=== PATIENT | female | born 1985 | race Caucasian/White ===

== ENCOUNTER → 2019-02-21 | Outpatient (CLI) | payer OTHER ==
[~2019-02-21] MED LIST: E-Z-GAS II EFFERVESCENT PACKET (SODIUM BICARB./CITRIC ACID/SIMETHICONE) As Ordered ONE; E-Z-HD 98% w/w 340GM SUSP BTL As Ordered ONE; E-Z-PAQUE 96% w/w SUSP 176GM BTL As Ordered ONE
--- NOTE | 2019-02-22 20:10 | REP ---
Examination Requested: Esophagram Barium Swallow Reason For Exam/Comment: Dysphasia, gastroesophageal spasm Esophagram: The procedure was performed LISA Ocasio, under the direct supervision of Dr. Cordero. The images were reviewed with Dr. Cordero. A single PA chest x-ray is submitted as a copy lathe tender film. The superior mediastinal structures are midline. The heart size is within normal limits. The lungs are clear. Liquid barium and gas producing granules were given in the erect position as well as liquid barium in the prone oblique position, in order to perform a double contrast esophagram examination. Oral and pharyngeal stages of the examination were unremarkable. Esophageal transport is efficient and there is no esophagitis, stricture, or mucosal ring noted. There is no hiatal hernia noted. Gastroesophageal reflux was visualized to the level of the thoracic inlet. Impression: 1. Gastroesophageal reflux to the level of the thoracic inlet. 0.3 minutes of fluoroscopy time was utilized for this procedure. Some fluoroscopic images are performed with last image hold technology. These images require no additional radiation. Reviewed by LISA Reynoso 02/21/2019 03:05 P Electronically Signed by Placido Cordero MD 02/22/2019 08:02 P
== END ==
LOC: M RAD 07:06
PROVIDERS: ATTEND Physician Assistant
DX: K21.9 Gastro-esophageal reflux disease without esophagitis (principal)

== ENCOUNTER 2019-08-14 11:29 | Emergency (ER) | payer OTHER ==
[~2019-08-14] VITALS: Ht 160 cm; Wt 66.5 kg
[2019-08-14 12:30] LABS: BASO % 0.5 % (0.0-1.0); EOS # 0.1 10^3/uL (0.0-0.5); EOS % 1.1 % (0.0-3.0); HEMATOCRIT 40.4 % (36.0-47.0); HEMOGLOBIN 13.2 g/dl (12.0-15.5); LYMPH % 30.1 % (24.0-44.0); MEAN CORPUSCULAR HEMOGLOBIN 27.7 pg (27.0-33.0); MEAN CORPUSCULAR HGB CONC 32.7 g/dl (32.0-36.5); MEAN CORPUSCULAR VOLUME 84.7 fl (80.0-96.0); MONO # 0.4 10^3/uL (0.0-0.8); MONO % 6.1 % (0.0-5.0); NEUTROPHILS # 4.1 10^3/uL (1.5-8.5); NEUTROPHILS % 61.9 % (36.0-66.0); PLATELET COUNT, AUTOMATED 307 10^3/uL (150-450); RED BLOOD COUNT 4.77 10^6/uL (4.00-5.40); WHITE BLOOD COUNT 6.6 10^3/uL (4.0-10.0)
[2019-08-14 13:09] LABS: HCG, SERUM QUALITATIVE NEGATIVE (NEGATIVE)
[2019-08-14 13:10] LABS: ALBUMIN 4.1 GM/DL (3.2-5.2); ALT/SGPT 43 U/L (12-78); BILIRUBIN,DIRECT 0.2 MG/DL (0.0-0.2); BILIRUBIN,TOTAL 0.7 MG/DL (0.2-1.0); LIPASE 109 U/L (73-393); TOTAL PROTEIN 7.3 GM/DL (6.4-8.2)
[2019-08-14] MEDS ORDERED: ISOVUE-370 76% 100ML VIAL (Q9967) As Ordered ONE (13:27)
--- NOTE | 2019-08-14 14:42 | REP ---
CT ABDOMEN AND PELVIS WITH IV CONTRAST ONLY: 08/14/2019. Clinical history. Right lower quadrant pain worse with movement. Increasing over the past 4 days. Technique: Bolus of 75 mL Isovue 370, scanning through the abdomen and pelvis with coronal and sagittal reconstructions provided. Findings: No prior study. CT abdomen: Lung bases are clear. Heart is not enlarged. There is no pericardial thickening or effusion. No hiatal hernia. I see no hepatosplenomegaly, focal hepatic mass or splenic lesion. There is no intrahepatic biliary dilatation. Gallbladder shows no calcified stone. Small amount of sludge is difficult to exclude. No ascites in the upper abdomen. Pancreas shows no mass, ductal dilatation or inflammatory change and no adjacent fluid or adenopathy. Kidneys were without hydronephrosis or mass. I see no periaortic, retroperitoneal or mesenteric adenopathy in the abdomen proper. Stomach collapsed. Small bowel loops in the abdomen proper without dilatation or inflammatory change. The colon shows stool and gas scattered around about its abdominal course. Lung window review of all CT slices in the abdomen and pelvis shows no perforation or free air. Bone windows show lumbar and lower thoracic vertebral levels, their posterior elements as well as the visualized ribs to be all intact. 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 Kidneys show function without obstruction. There is no hydronephrosis, hydroureter, ureteral stone or bladder stone. Bladder only partially filled but without mass. Uterus anteverted, not enlarged. The ovaries are fairly symmetric in size. There is a collapsing cyst or follicle in the right ovary up to 17 mm. In addition, there are tubular low density areas in the right adnexa. This may reflect some hydrosalpinx or fluid in small bowel loops. The appendix is seen measuring up to 5.8 mm and is without appendicolith or inflammatory change. No pericecal mass or fluid collection. No abscess. In the pelvis the distal left colon, sigmoid and rectum were unremarkable. There is no ventral or inguinal hernia nor pathologic sized inguinal adenopathy. Impression: 1. There is evidence for a collapsing cyst or follicle in the right ovary up to 1.7 cm currently, but without associated free fluid or mass. 2. Tubular fluid filled structures adjacent to that ovary may reflect hydrosalpinx or small bowel loops. 3. Normal appendix seen and less than 6 mm size without no appendicolith, periappendiceal inflammatory change, perforation or abscess. 4. No colitis or diverticulitis. Small bowel loops visible were grossly unremarkable. Solid organs upper abdomen unremarkable. Electronically Signed by Salty Kirkpatrick MD 08/14/2019 08:32 P
[2019-08-14] MEDS ORDERED: KETO10TAB PO (17:28)
[2019-08-14 17:42] VITALS: BP 111/70
[2019-08-14] MEDS ORDERED: ACETAMINOPHEN 325 MG TAB PO ONE (17:45)
[2019-08-14] MEDS ORDERED: KETOROLAC TROMETHAMINE 10 MG TAB PO ONE (17:45)
--- NOTE | 2019-08-15 07:48 | REP ---
PELVIC AND ENDOVAGINAL PROBE ULTRASOUND: 08/14/2019. COMPARISON: CT abdomen pelvis today. CLINICAL HISTORY: Right lower quadrant pain. Fluid-filled bowel loops versus hydrosalpinx at the right adnexa. Collapsing cyst or follicle right ovary. FINDINGS: Both transabdominal and endovaginal probes were utilized. Bladder was 8.8 x 8.7 x 4.4 cm in greatest diameter. Uterus is anteverted and transabdominal and retroverted during endovaginal probe ultrasound and measured 8.5 x 3.9 x 4.4 cm. It has central endometrial echogenic stripe of 6.7 mm. There is no fluid in the endometrial cavity. Uterus has smooth contour with no mass. The right adnexa shows the ovary 3.3 x 3.2 x 2.4 cm with calculated volume of 13 mL. Doppler tracing shows resistive index of 0.49. There is an involuting follicle or cyst at 1.3 x 1 x 1 cm, which was seen by CT as well. Trace amount of free fluid is noted adjacent to it. The left ovary is 2.9 x 1.9 x 3 cm calculated volume 8.6 mL . It has normal Doppler tracing with resistive index 0.61. Neither ovary with torsion. IMPRESSION: 1. A collapsing cyst or follicle in the right ovary with a small amount of blood flow at its periphery and with trace free fluid in the right adnexa. 2. I do not see evidence of hydrosalpinx, the findings on CT are therefore felt to represent small bowel loops with fluid. 3. Both ovaries with normal blood flow, no torsion. 4. Uterus and endometrial stripe normal. Electronically Signed by Salty Kirkpatrick MD 08/15/2019 09:31 A
== END 2019-08-14 17:45 | disposition home or self-care (01) ==
LOC: M ED 11:29
DX: N83.01 Follicular cyst of right ovary (principal); Z88.8 Allergy status to other drugs, medicaments and biological substances
CPT/HCPCS: 74177; 76830; 76856; 80047; 80076; 81001; 83690; 84703; 85025; 93976; 99284; Q9967

== ENCOUNTER → 2020-02-26 | Outpatient (REF) | payer OTHER ==
[~2020-02-26] MED LIST changes: -E-Z-GAS II EFFERVESCENT PACKET (SODIUM BICARB./CITRIC ACID/SIMETHICONE) As Ordered ONE; -E-Z-HD 98% w/w 340GM SUSP BTL As Ordered ONE; -E-Z-PAQUE 96% w/w SUSP 176GM BTL As Ordered ONE; +KETO10TAB PO
== END ==
LOC: M LAB REF 11:55
PROVIDERS: ATTEND Physician Assistant Medical
DX: J02.9 Acute pharyngitis, unspecified (principal)

== ENCOUNTER → 2024-07-31 | Outpatient (REF) | payer OTHER | LOC: M LAB REF 17:45 | PROVIDERS: ATTEND Physician Assistant | DX: B34.9 Viral infection, unspecified (principal) ==

== ENCOUNTER → 2024-11-23 | Outpatient (REF) | payer OTHER ==
[2024-11-23 17:21] LABS: APPEARANCE, URINE CLEAR (CLEAR); BACTERIA, URINE AUTO NEGATIVE (NEGATIVE); BILIRUBIN, URINE AUTO NEGATIVE (NEGATIVE); BLOOD, URINE BLOOD NEGATIVE (NEGATIVE); COLOR, URINE YELLOW (YELLOW); GLUCOSE, URINE (UA) AUTO NEGATIVE (NEGATIVE); KETONE, URINE AUTO NEGATIVE (NEGATIVE); LEUKOCYTE ESTERASE, URINE AUTO NEGATIVE (NEGATIVE); MUCUS, URINE SMALL (NEGATIVE); NITRITE, URINE AUTO NEGATIVE (NEGATIVE); PROTEIN, URINE AUTO NEGATIVE (NEGATIVE); RBC, URINE AUTO 0 /HPF (0-3); SPECIFIC GRAVITY URINE AUTO 1.023 (1.002-1.035); SQUAMOUS EPITHELIAL CELL UR AU 1 /HPF (0-6); UROBILINOGEN, URINE AUTO 0.2 mg/dL (0.0-2.0); WBC, URINE AUTO 0 /HPF (0-3)
[2024-11-23 18:55] LABS: Trichomonas vaginalis (AMP) NOT DETECTED (NEGATIVE)
[2024-11-23 19:19] LABS: GC DNA AMPLIFICATION NEGATIVE (NEGATIVE)
== END ==
LOC: M LAB REF 17:02
PROVIDERS: ATTEND Physician Assistant
DX: Z20.2 Contact with and (suspected) exposure to infections with a predominantly sexual mode of transmission (principal)

== ENCOUNTER → 2025-04-12 | Outpatient (REF) | payer OTHER | LOC: M LAB REF 17:11 | PROVIDERS: ATTEND Physician Assistant | DX: N89.8 Other specified noninflammatory disorders of vagina (principal) ==

== ENCOUNTER → 2025-05-14 | Outpatient (REF) | payer OTHER | LOC: M LAB REF 18:57 | DX: J02.9 Acute pharyngitis, unspecified (principal) ==

== ENCOUNTER → 2025-06-02 | Outpatient (REF) | payer OTHER ==
[~2025-06-02] MED LIST changes: +MONT-5 PO; +RIZA10TA64 PO; +TOPI-21 PO
== END ==
LOC: M PLALAB 11:40
PROVIDERS: ATTEND Student in an Organized Health Care Education/Training Program
DX: N89.8 Other specified noninflammatory disorders of vagina (principal)

== ENCOUNTER 2025-06-14 06:13 | Day surgery (SDC) | payer OTHER ==
[~2025-06-14] VITALS: Ht 160 cm; Wt 60.9 kg
[2025-06-14] MEDS ORDERED: LR 1,000 ML IV SCH (06:50)
[2025-06-14] MEDS ORDERED: HYDROMORPHONE HCL 0.5 MG/0.5 ML SYRINGE IV PRN ×2 (06:55→11:25)
[2025-06-14] MEDS ORDERED: MORPHINE 2 MG/ML 1 ML VIAL IV PRN ×2 (06:55→11:25)
[2025-06-14] MEDS ORDERED: GABAPENTIN 300 MG CAP PO ONE (07:00)
[2025-06-14] MEDS: SCOPOLAMINE 1MG TRANSDERMAL PATCH TOP ONE (07:41)
[2025-06-14] MEDS ORDERED: LIDOCAINE 2% 100 MG/5 ML SDV (FOR ANES.) As Ordered ONE (08:35)
[2025-06-14] MEDS ORDERED: ACETAMINOPHEN 1000MG/100ML IV BAG As Ordered ONE (08:35)
[2025-06-14] MEDS ORDERED: dexAMETHasone 4 MG/ML 1 ML VIAL As Ordered ONE (08:35)
[2025-06-14] MEDS ORDERED: ONDANSETRON 4MG/2ML VIAL As Ordered ONE (08:35)
[2025-06-14] MEDS ORDERED: MIDAZOLAM INJ 2 MG/2 ML VIAL As Ordered ONE (08:35)
[2025-06-14] MEDS ORDERED: PHENYLephrine 500MCG 5ML (100MCG/ML) SYRINGE As Ordered ONE (08:46)
[2025-06-14] MEDS ORDERED: KETOROLAC 30 MG/ML 1 ML VIAL As Ordered ONE (09:21)
[2025-06-14] MEDS ORDERED: dexmedeTOMIDine (4 MCG/ML) 200 MCG/50 ML BTL As Ordered ONE (09:21)
[2025-06-14] MEDS: LIDOCAINE 2% W/EPINEPHrine 20 ML VIAL **PRES FREE As Ordered ONE (09:30)
[2025-06-14] MEDS ORDERED: FUROSEMIDE 100 MG/10 ML VIAL As Ordered ONE (10:05)
[2025-06-14] MEDS: METHYLENE BLUE 0.5% (5 MG/ML) 10 ML AMP As Ordered ONE (10:14)
[2025-06-14] MEDS: ESTROGENS VAGINAL CREAM 30 GM As Ordered ONE (10:59)
[2025-06-14] MEDS: ONDANSETRON 4MG/2ML VIAL IV PRN (11:46)
[2025-06-14 12:59] LABS: PLATELET COUNT, AUTOMATED 222 10^3/uL (150-450)
[2025-06-14 13:20] VITALS: BP 95/58; TEMP 97.9; O2SAT 100
[2025-06-14 13:22] LABS: ALT/SGPT 13 U/L (7.0-40); AST/SGOT 11 U/L (<34); CALCIUM LEVEL 7.8 MG/DL (8.5-10.1); CARBON DIOXIDE LEVEL 22 MMOL/L (20-31); CHLORIDE LEVEL 110 MMOL/L (98-107); CREATININE FOR GFR 0.68 MG/DL (0.55-1.30); GLOMERULAR FILTRATION RATE > 90.0 (>58); POTASSIUM SERUM 4.1 MMOL/L (3.5-5.1); SODIUM LEVEL 142 MMOL/L (136-145)
[2025-06-14] MEDS ORDERED: IBUP80TA PO (15:35)
[2025-06-14] MEDS ORDERED: ACET-897 PO (15:35)
[2025-06-14] MEDS ORDERED: MM S100C PO (15:35)
[2025-06-14] MEDS ORDERED: OXYC1TAB23 PO (15:35)
[2025-06-14] MEDS ORDERED: FLUC150T9 PO (16:17)
== END 2025-06-14 14:16 | disposition home or self-care (01) ==
LOC: M SDC 06:13
PROVIDERS: ATTEND Student in an Organized Health Care Education/Training Program
DX: N81.2 Incomplete uterovaginal prolapse (principal); G43.909 Migraine, unspecified, not intractable, without status migrainosus; Z79.899 Other long term (current) drug therapy
CPT/HCPCS: 36415; 57260; 80053; 81025; 85027; J0131; J0688; J1100; J1885; J1938; J2250; J2371; J2405; J3010; J3490

== ENCOUNTER → 2025-06-28 | Outpatient (REF) | payer OTHER ==
[~2025-06-28] MED LIST changes: +ACET-897 PO; +FLUC150T9 PO; +IBUP80TA PO; +MM S100C PO; +OXYC1TAB23 PO
== END ==
LOC: M PLALAB 13:30
PROVIDERS: ATTEND Student in an Organized Health Care Education/Training Program
DX: N89.8 Other specified noninflammatory disorders of vagina (principal)

== ENCOUNTER → 2025-07-05 | Outpatient (REF) | payer OTHER | LOC: M PLALAB 15:23 | PROVIDERS: ATTEND Student in an Organized Health Care Education/Training Program | DX: N89.8 Other specified noninflammatory disorders of vagina (principal) ==